=== PATIENT | female | born 1970 | race Caucasian/White ===

== ENCOUNTER 2021-07-24 01:32 | Day surgery (SDC) | payer BC, SELFPAY ==
[2021-07-11 14:07] VITALS: BMI 30.8
--- NOTE | 2021-07-23 12:46 | PM.HPGS ---
History of Present Illness History of Present Illness Consent: Risks, benefits, and alternatives have been discussed and questions answered. Patient agrees to proceed with procedure. Chief complaint: neoplasm screening Narrative: Amber Reid is a 51 year old female referred for colon cancer screening Review of Systems Review of Systems: All systems reviewed & are unremarkable except as noted in HPI and below [facility] Social History Social History Smoking status: Never smoker Second hand tobacco smoke exposure: No Alcohol intake: current Living arrangements: alone Spiritual care concerns: No Meds Home Medications and Allergies Home Medications Medication Instructions Recorded Confirmed Type No Home Medications 07/11/21 07/24/21 History Allergies Allergy/AdvReac Type Severity Reaction Status Date / Time No Known Allergies Allergy Mild Verified 07/24/21 06:52 Exam Resp: Auscultation: clear to auscultation bilaterally Cardio: Rate: regular rate Rhythm: regular rhythm GI: GI Palp: Yes Soft to palpation and No Tenderness to palpation present (GI) Assessment and Plan Assessment and plan (1) Colon cancer screening: Code(s): Z12.11 - Encounter for screening for malignant neoplasm of colon Status: Acute Assessment and Plan: Colonoscopy with possible biopsy or polypectomy or cautery or injection of substances.
--- NOTE | 2021-07-23 13:25 | WPDANESEPPF ---
Anes - Initial Pre Proc Eval Procedure: Operation Date: 07/24/21 08:00 Proposed Procedures p Screening Colonoscopy - Toni Dewitt MD Date/Time: 07/23/21 13:25 Surgeon: Toni Dewitt MD Pre Op Diagnosis: neoplasm screening Patient Data Age: 51 Gender: F Height: 1.65 m Weight: 84 kg Allergies Allergy/AdvReac Type Severity Reaction Status Date / Time No Known Allergies Allergy Mild Verified 07/24/21 06:52 Home Medications Medication Instructions Recorded Confirmed Type No Home Medications 07/11/21 07/24/21 History Patient hx anesthesia problems: none Family hx anesthesia problems: none [facility] Social History Social History Smoking status: Never smoker Second hand tobacco smoke exposure: No Alcohol intake: current Living arrangements: alone Spiritual care concerns: No Anes - Eval Final PreProcedure Day of Procedure 07/23/21 13:25 Patient weight: obese Heart: regular rate and rhythm Lungs: clear to auscultation and normal air movement Airway: Mallampati scale class II Neurological: alert and oriented Last oral intake: >/= 8 hours ASA classification: II Emergent: no Anesthetic plan: proceed Anesthesia type and monitoring: general GIVS and standard monitoring Informed Consent: The patient's anesthetic plan and its attendant risks and benefits were discussed with the patient/family/POA. Questions were solicited and answers provided to the satisfaction of the patient/family/POA.
[2021-07-24 06:55] VITALS: BP 135/95; PULSE 96; RESP 16; TEMP 36.1; O2SAT 99
[2021-07-24] MEDS: LACTATED RINGERS 1,000 ML 150 ML IV CONT (07:07)
[2021-07-24 08:19] VITALS: BP 108/68; PULSE 84; RESP 20; O2SAT 100
[2021-07-24 08:29] VITALS: BP 117/78; PULSE 80; RESP 24; O2SAT 99
[2021-07-24 08:39] VITALS: BP 122/78; PULSE 82; RESP 18; O2SAT 99
== END 2021-07-24 08:55 | disposition home or self-care (01) ==
PROVIDERS: PCP Physician Assistant; Visit Provider Internal Medicine Gastroenterology
PROC: 0DJD8ZZ Inspection of Lower Intestinal Tract, Via Natural or Artificial Opening Endoscopic (ICD-10-PCS; CPT 45378; principal; 2021-07-24 08:00)
DX: Z12.11 Encounter for screening for malignant neoplasm of colon (principal)
CPT/HCPCS: 45378; J2704; J7120

== ENCOUNTER 2022-04-30 01:55 | Day surgery (SDC) | payer BC, SELFPAY ==
[2022-04-17 12:37] VITALS: BMI 31.1
--- NOTE | 2022-04-29 12:54 | PM.HPGS ---
History of Present Illness History of Present Illness Consent: Risks, benefits, and alternatives have been discussed and questions answered. Patient agrees to proceed with procedure. Chief complaint: cough, Abnormal CAT scan Narrative: Amber Reid is a 52 year old female who was referred for EGD because of abnormal CT scan. She has had a persistent cough. CT scan showed thickening of the gastroesophageal junction. she tried taking pantoprazole but had a reaction with hives and sores in her mouth. She does occasionally wake up at night regurgitating. She will also regurgitate during the day shortly after meal or even after drinking water Review of Systems Review of Systems: All systems reviewed & are unremarkable except as noted in HPI and below PMF[facility] Past Medical History Medical History Migraine Surgical History Surgical History History of cholecystectomy Social History Social History Smoking status: Never smoker Second hand tobacco smoke exposure: No Alcohol intake: current Substance use type: does not use Living arrangements: with family Spiritual care concerns: No Meds Home Medications and Allergies Home Medications Medication Instructions Recorded Confirmed Type pantoprazole 40 mg tablet,delayed 40 tablet PO DAILY 04/17/22 04/17/22 History release Allergies Allergy/AdvReac Type Severity Reaction Status Date / Time No Known Allergies Allergy Mild Verified 04/17/22 12:30 Exam Const: General: alert Orientation/consciousness: patient oriented x3 Resp: Auscultation: clear to auscultation bilaterally Cardio: Rhythm: regular rhythm GI: GI Palp: Yes Soft to palpation and No Tenderness to palpation present (GI) Neuro: General: patient oriented x3 Assessment and Plan Assessment and plan (1) Abnormal CT scan, gastrointestinal tract: Code(s): R93.3 - Abnormal findings on diagnostic imaging of other parts of digestive tract Status: Acute Assessment and Plan: EGD with possible biopsy or dilatation or cautery.
--- NOTE | 2022-04-29 15:28 | P.PNAN_ITS ---
Anes - Initial Pre Proc Eval Procedure: Operation Date: 04/30/22 08:30 Proposed Procedures p Esophagogastroduodenoscopy - Toni Dewitt MD Date/Time: 04/29/22 15:28 Surgeon: Toni Dewitt MD Pre Op Diagnosis: cough, Abnormal CAT scan Patient Data Age: 52 Gender: F Height: 1.65 m Weight: 85 kg Allergies Allergy/AdvReac Type Severity Reaction Status Date / Time No Known Allergies Allergy Mild Verified 04/17/22 12:30 Home Medications Medication Instructions Recorded Confirmed Type pantoprazole 40 mg tablet,delayed 40 tablet PO DAILY 04/17/22 04/17/22 History release Patient hx anesthesia problems: none Family hx anesthesia problems: none Results Review: All pre-operative results and documents have been reviewed as part of the pre- operative evaluation. [facility] Past Medical History Medical History (Updated 04/29/22 @ 15:28 by Juan Gutierrez DO) Migraine Surgical History Surgical History (Updated 04/29/22 @ 15:28 by Juan Gutierrez DO) History of cholecystectomy Social History Social History Smoking status: Never smoker Second hand tobacco smoke exposure: No Alcohol intake: current Substance use type: does not use Living arrangements: with family Spiritual care concerns: No Anes - Eval Final PreProcedure Day of Procedure 04/29/22 15:28 Patient weight: obese Heart: regular rate and rhythm Lungs: clear to auscultation Airway: Mallampati scale class II Neurological: alert and oriented Last oral intake: >/= 8 hours ASA classification: II Emergent: no Anesthetic plan: proceed Anesthesia type and monitoring: general GIVS and standard monitoring Results Review: All pre-operative results and documents have been reviewed as part of the pre- operative evaluation. Informed Consent: The patient's anesthetic plan and its attendant risks and benefits were discussed with the patient/family/POA. Questions were solicited and answers provided to the satisfaction of the patient/family/POA.
[2022-04-30 07:38] VITALS: BMI 32.3
[2022-04-30 07:40] VITALS: BP 132/93; PULSE 80; RESP 16; TEMP 36.6; O2SAT 97
[2022-04-30] MEDS: LACTATED RINGERS 1,000 ML 150 ML IV CONT (07:47)
[2022-04-30 08:25] VITALS: BP 138/84; PULSE 77; RESP 17; O2SAT 97
[2022-04-30 08:35] VITALS: BP 136/91; PULSE 73; RESP 16; O2SAT 97
[2022-04-30 08:45] VITALS: BP 139/92; PULSE 69; RESP 18; O2SAT 97
== END 2022-04-30 08:51 | disposition home or self-care (01) ==
PROVIDERS: PCP Physician Assistant; Visit Provider Internal Medicine Gastroenterology
PROC: 0DJ08ZZ Inspection of Upper Intestinal Tract, Via Natural or Artificial Opening Endoscopic (ICD-10-PCS; CPT 43235; principal; 2022-04-30 08:30)
DX: K21.00 Gastro-esophageal reflux disease with esophagitis, without bleeding (principal); K44.9 Diaphragmatic hernia without obstruction or gangrene; E66.9 Obesity, unspecified; Z68.32 Body mass index [BMI] 32.0-32.9, adult
CPT/HCPCS: 43239; 87081; 88305; J2704; J7120

== ENCOUNTER 2024-12-12 10:31 | Outpatient (CLI) | payer BC, SELFPAY ==
--- NOTE | ~2024-12-12 | XR_ITS ---
EXAMINATION: XR sacrum coccyx min 2V DATE: 12/12/2024 10:59 INDICATION: Sacrococcygeal disorders, not elsewhere classified. TECHNIQUE: 3 views of the sacrum and coccyx were obtained. COMPARISON: None. FINDINGS: Alignment is normal. No fracture. There is moderate osteoarthritis of the sacroiliac joints . There is mild osteoarthritis of the hip joints. There is mild lumbar spondylosis. IMPRESSION: 1. Polyarticular osteoarthritis. Reviewed, dictated and finalized at location A. [employer]
== END 2024-12-12 10:32 | disposition home or self-care (01) ==
PROVIDERS: PCP Physician Assistant; Visit Provider Physician Assistant
DX: M47.898 Other spondylosis, sacral and sacrococcygeal region (principal); M53.3 Sacrococcygeal disorders, not elsewhere classified
CPT/HCPCS: 72220